=== PATIENT | female | born 1940 | race Caucasian/White ===

== ENCOUNTER 2016-10-03 08:42 | Outpatient (CLI) | payer MEDICARE, OTHER | END 2016-10-03 08:43 | disposition home or self-care (01) | DX: M51.34 Other intervertebral disc degeneration, thoracic region (principal); M41.84 Other forms of scoliosis, thoracic region; M51.36 Other intervertebral disc degeneration, lumbar region; M47.816 Spondylosis without myelopathy or radiculopathy, lumbar region; M41.86 Other forms of scoliosis, lumbar region ==

== ENCOUNTER 2017-03-16 10:42 | Outpatient (CLI) | payer MEDICARE, OTHER ==
[2017-03-16 19:18] LABS: BASOPHILS % (AUTO) 0.5 %; EOSINOPHILS # (AUTO) 0.2 10^3/uL (0.0-0.7); EOSINOPHILS % (AUTO) 1.5 %; HCT - HEMATOCRIT 38.9 % (37.0-47.0); HGB - HEMOGLOBIN 13.4 g/dL (12.0-16.0); LYMPHOCYTES % (AUTO) 40.7 %; MEAN CORPUSCULAR HEMOGLOBIN 30.3 pg (27.0-31.0); MEAN CORPUSCULAR HGB CONC 34.3 g/dL (32.0-36.0); MEAN CORPUSCULAR VOLUME 88.3 fL (81.0-99.0); MONOCYTES # (AUTO) 0.8 10^3/uL (0.0-1.0); MONOCYTES % (AUTO) 8.2 %; NEUTROPHILS # (AUTO) 4.8 10^3/uL (1.5-6.6); NEUTROPHILS % (AUTO) 49.1 %; RED BLOOD COUNT 4.41 10^6/uL (4.20-5.40); RED CELL DISTRIBUTION WIDTH 13.1 % (12.0-15.0); UNCORRECTED WHITE BLOOD COUNT 9.9 x10^3/uL; WHITE BLOOD COUNT 9.9 x10^3/uL (4.8-10.8)
[2017-03-16 19:49] LABS: ALBUMIN/GLOBULIN RATIO 1.3 (1.0-2.2); BILIRUBIN,TOTAL 0.6 mg/dL (0.2-1.0); BUN - BLOOD UREA NITROGEN 23 mg/dL (6-20); CALCIUM 9.7 mg/dL (8.5-10.3); CARBON DIOXIDE - CO2 30 mmol/L (21-32); CHLORIDE 96 mmol/L (101-111); CHOL/HDL RATIO 3.7 (<4.4); CHOLESTEROL 176 mg/dL; CREATININE 0.8 mg/dL (0.4-1.0); GFR - MDRD 70 (>89); GLUCOSE 98 mg/dL (70-100); HDL CHOLESTEROL 48 mg/dL; LDL/HDL RATIO 1.5 (<4.4); POTASSIUM 3.2 mmol/L (3.5-5.0); SODIUM 135 mmol/L (135-145); TOTAL PROTEIN 7.2 g/dL (6.7-8.2); TRIGLYCERIDES 272 mg/dL; VLDL CHOLESTEROL 54 mg/dL
[2017-03-16 20:06] LABS: THYROID STIMULATING HORMONE 2.5 uIU/mL (0.34-5.60)
== END 2017-03-16 10:43 | disposition home or self-care (01) ==
LOC: LAB.WCP 10:42
PROVIDERS: ATTEND Family Medicine
DX: R41.3 Other amnesia (principal)
CPT/HCPCS: 36415; 80053; 80061; 82607; 84443; 85025